=== PATIENT | male | born 1970 | race Caucasian/White ===

== ENCOUNTER 2017-03-21 01:43 | Emergency (ER) | payer OTHER ==
[~2017-03-21] VITALS: Ht 180.3 cm; Wt 79.4 kg
[2017-03-21 02:07] VITALS: BP 139/94
== END 2017-03-21 02:35 | disposition left against medical advice (07) ==
LOC: ER 01:47
DX: Z53.21 Procedure and treatment not carried out due to patient leaving prior to being seen by health care provider (principal)
CPT/HCPCS: A4606; Z7610

== ENCOUNTER 2017-07-28 02:10 | Emergency (ER) | payer OTHER ==
[~2017-07-28] VITALS: Ht 175.3 cm; Wt 68.0 kg
[2017-07-28 02:18] VITALS: BP 152/96
[2017-07-28] MEDS ORDERED: IBUPROFEN 400 MG TABLET ONE (02:29)
[2017-07-28] MEDS ORDERED: IBUPROFEN 400 MG TABLET PO ONE (02:30)
--- NOTE | 2017-07-28 02:31 | NUR ---
RADIOLOGY AT BEDSIDE
== END 2017-07-28 02:56 | disposition home or self-care (01) ==
LOC: ER 02:11
DX: S80.11XA Contusion of right lower leg, initial encounter (principal); Z76.5 Malingerer [conscious simulation]; F32.9 Major depressive disorder, single episode, unspecified; G89.29 Other chronic pain; F17.210 Nicotine dependence, cigarettes, uncomplicated; Z90.89 Acquired absence of other organs; W18.39XA Other fall on same level, initial encounter; Y93.89 Activity, other specified; Y92.481 Parking lot as the place of occurrence of the external cause; Y99.8 Other external cause status
CPT/HCPCS: 73610-TC; 73630-TC; A4606; Z7610

== ENCOUNTER 2018-11-04 05:32 | Emergency (ER) | payer OTHER ==
[~2018-11-04] VITALS: Ht 180.3 cm; Wt 82.1 kg
--- NOTE | 2018-11-04 05:49 | NUR ---
PT BIBS C/C R KNEE PAIN SINCE LAST NIGHT, DENIES TRAUMA, PT IN BED SITTING COMFORTABLY AWAITNG MED EVAL
--- NOTE | 2018-11-04 06:36 | NUR ---
TECH AT BEDSIDE FOR XRAY
[2018-11-04] MEDS ORDERED: IBUPROFEN 600 MG TABLET PO ONE ×3 (07:13→07:30)
--- NOTE | 2018-11-04 07:19 | NUR ---
Patient discharged to home in stable condition. Written and verbal after care instructions given. Patient verbalizes understanding of instruction.
[2018-11-04 07:23] VITALS: BP 169/90
== END 2018-11-04 07:24 | disposition home or self-care (01) ==
LOC: ER 05:35
DX: S83.8X1A Sprain of other specified parts of right knee, initial encounter (principal); G89.29 Other chronic pain; M54.9 Dorsalgia, unspecified; F32.9 Major depressive disorder, single episode, unspecified; F17.210 Nicotine dependence, cigarettes, uncomplicated; Z90.89 Acquired absence of other organs; Z98.890 Other specified postprocedural states; V18.0XXA Pedal cycle driver injured in noncollision transport accident in nontraffic accident, initial encounter; Y93.89 Activity, other specified; Y92.89 Other specified places as the place of occurrence of the external cause; Y99.8 Other external cause status
CPT/HCPCS: 73564-TC

== ENCOUNTER 2018-12-14 01:18 | Emergency (ER) | payer OTHER ==
[~2018-12-14] VITALS: Ht 170.2 cm; Wt 78.5 kg
--- NOTE | 2018-12-14 01:32 | NUR ---
PATIENT STATED TO TRIAGE NURSE THAT HE WASN'T READY TO BE SEEN, HE WAS TOO BUSY CLEANING HIS EARS OUT RIGHT NOW.
[2018-12-14 02:09] VITALS: BP 153/91
== END 2018-12-14 02:37 | disposition home or self-care (01) ==
LOC: ER 01:19
DX: L73.8 Other specified follicular disorders (principal); M54.9 Dorsalgia, unspecified; G89.29 Other chronic pain; F32.9 Major depressive disorder, single episode, unspecified; F17.210 Nicotine dependence, cigarettes, uncomplicated; Z98.890 Other specified postprocedural states

== ENCOUNTER 2018-12-19 06:14 | Emergency (ER) | payer OTHER ==
[~2018-12-19] VITALS: Ht 180.3 cm; Wt 81.6 kg
[2018-12-19 06:17] VITALS: BP 140/86
== END 2018-12-19 07:22 | disposition home or self-care (01) ==
LOC: ER 06:20
DX: B86 Scabies (principal); M54.9 Dorsalgia, unspecified; G89.29 Other chronic pain; F32.9 Major depressive disorder, single episode, unspecified; F17.210 Nicotine dependence, cigarettes, uncomplicated; Z98.890 Other specified postprocedural states

== ENCOUNTER 2019-06-13 20:58 | Emergency (ER) | payer OTHER ==
[~2019-06-13] VITALS: Ht 180.3 cm; Wt 83.0 kg
[2019-06-13 21:26] VITALS: BP 159/70
[2019-06-13] MEDS ORDERED: IBUPROFEN 400 MG TABLET PO ONE (22:30)
[2019-06-13] MEDS ORDERED: AMOX/CLAVULANATE 875 MG TABLET PO ONE (22:30)
[2019-06-13] MEDS ORDERED: IBUPROFEN 400 MG TABLET ONE (22:31)
[2019-06-13] MEDS ORDERED: AMOX/CLAVULANATE 875 MG TABLET ONE (22:32)
== END 2019-06-13 23:09 | disposition home or self-care (01) ==
LOC: ER 21:03
DX: H60.12 Cellulitis of left external ear (principal); G89.29 Other chronic pain; M54.9 Dorsalgia, unspecified; F17.210 Nicotine dependence, cigarettes, uncomplicated; Z90.89 Acquired absence of other organs; Z98.890 Other specified postprocedural states

== ENCOUNTER 2019-09-18 07:24 | Emergency (ER) | payer OTHER ==
[~2019-09-18] VITALS: Ht 177.8 cm; Wt 77.1 kg
[2019-09-18 07:37] VITALS: BP 129/102
--- NOTE | 2019-09-18 08:21 | NUR ---
Patient given written and verbal discharge instructions. Patient verbalizes understanding of instructions. Patient is ambulatory with steady gait. Refuses offer of longterm placement. Patient given list of available shelters in surrounding area.
--- NOTE | 2019-09-18 08:21 | NUR ---
Patient discharged to home in stable condition. Written and verbal after care instructions given. Patient verbalizes understanding of instruction.
== END 2019-09-18 08:21 | disposition home or self-care (01) ==
LOC: ER 07:27
DX: B35.3 Tinea pedis (principal); G89.29 Other chronic pain; M54.9 Dorsalgia, unspecified; F17.210 Nicotine dependence, cigarettes, uncomplicated; Z59.0 Homelessness; Z90.89 Acquired absence of other organs; Z98.890 Other specified postprocedural states

== ENCOUNTER 2019-09-19 03:02 | Emergency (ER) | payer OTHER ==
[~2019-09-19] VITALS: Ht 180.3 cm; Wt 77.1 kg
[2019-09-19 03:02] VITALS: BP 101/70
== END 2019-09-19 03:48 | disposition home or self-care (01) ==
LOC: ER 03:05
DX: L84 Corns and callosities (principal); G89.29 Other chronic pain; M54.9 Dorsalgia, unspecified; F17.210 Nicotine dependence, cigarettes, uncomplicated; Z90.89 Acquired absence of other organs; Z98.890 Other specified postprocedural states; Z59.0 Homelessness

== ENCOUNTER 2020-10-05 00:23 | Emergency (ER) | payer OTHER ==
[~2020-10-05] VITALS: Ht 180.3 cm; Wt 78.9 kg
[2020-10-05 00:32] VITALS: BP 119/73
[2020-10-05] MEDS ORDERED: MUPI15CR TP (00:36)
== END 2020-10-05 00:50 | disposition home or self-care (01) ==
LOC: ER 00:26
DX: L03.311 Cellulitis of abdominal wall (principal); G89.29 Other chronic pain; M54.9 Dorsalgia, unspecified; F32.9 Major depressive disorder, single episode, unspecified; F17.200 Nicotine dependence, unspecified, uncomplicated; Z90.89 Acquired absence of other organs; Z98.890 Other specified postprocedural states; Z59.0 Homelessness; Z79.899 Other long term (current) drug therapy